=== PATIENT | male | born 1985 | race Caucasian/White ===

== ENCOUNTER 2024-04-08 11:21 | Outpatient (CLI) | payer SELFPAY ==
--- NOTE | ~2024-04-08 | US_ITS ---
EXAMINATION: US thyroid DATE: 04/08/2024 11:49 INDICATION: Nodule TECHNIQUE: Multiple ultrasound images of the thyroid were obtained. COMPARISON: None. FINDINGS: The right thyroid lobe measures 6.6 x 2.7 x 2.7 cm. The left thyroid lobe measures 6.8 x 1.8 x 2.5 c m. There is heterogeneous echotexture and increased echogenicity throughout the thyroid gland, which decreases sensitivity for nodule detection. No discrete nodules identified. Normal vascular flow is present. IMPRESSION: Thyromegaly. Heterogeneous thyroid echogenicity, consistent with the given history of Graves' disease . Reviewed, dictated and finalized at location [facility]. IMPRESSION: Thyromegaly. Heterogeneous thyroid echogenicity, consistent with the given hist ory of Graves' disease.
== END 2024-04-08 11:22 | disposition home or self-care (01) ==
DX: E01.0 Iodine-deficiency related diffuse (endemic) goiter (principal); E05.00 Thyrotoxicosis with diffuse goiter without thyrotoxic crisis or storm
CPT/HCPCS: 76536